=== PATIENT | female | born 1980 | race Caucasian/White ===

== ENCOUNTER 2018-06-13 01:26 | Outpatient (RCR) | payer BC ==
[~2018-06-13 01:26] MED LIST: ACET500T68 PO; BISM262T85 PO; CETI10CA8 PO; CIPR-344 PO; ETHI1TAB3 PO; IBUP800T37 PO; LOR5/325 PO; METR-1 PO; OXYC-865 PO
--- NOTE | 2018-06-13 15:36 | RADIOLOGY IMAGING REPORT ---
FACILITY: [facility] PATIENT NAME: Codi Ambrosio : 1980 MR: [id number] V: [id number] EXAM DATE: ORDERING PHYSICIAN: IRA MCNEAL TECHNOLOG[place] [facility] [place]odi Amb[place] : 1980 Visit/Account:[id number] Date of Sevice: 06/13/2018 EXAMINATION: MRI Lumbar spine without intravenous contrast HISTORY: Low back pain. COMPARISON: None available. TECHNIQUE: Multi-planar, multi-sequence lumbar spine MRI was performed without intravenous contrast administration. FINDINGS: Alignment: Normal. Vertebral marrow signal: Negative. Distal thoracic cord: Negative. Conus: negative, terminates at L1-L2 Cauda equina: Negative. Paravertebral soft tissues: Negative. Visualized abdominal and pelvic structures: Negative. Disc Spaces: Lower thoracic spine: Negative. L1-2: Negative. L2-3: Negative. L3-4: Negative. L4-5: Minimal disc bulge and facet hypertrophy. No significant stenosis. L5-S1: Mild facet hypertrophy with no significant stenosis. IMPRESSION: Minimal degenerative changes in the lower lumbar spine with no significant stenosis. Report Dictated By: Brigido Salas MD at 06/13/2018 3:27 PM Report E-Signed By: Brigido Salas MD at 06/13/2018 3:32 PM [id number]
--- NOTE | 2018-06-14 15:57 | RADIOLOGY IMAGING REPORT ---
FACILITY: [facility] PATIENT NAME: Codi Ambrosio : 1980 MR: [id number] V: [id number] EXAM DATE: ORDERING PHYSICIAN: IRA MCNEAL TECHNOLOGIST: Location: [facility] [place] Patient: Codi Ambrosio : 1980 Visit/Account:[id number] Date of Sevice: 06/14/2018 T SPINE W/O CONTRAST INDICATION: Back pain COMPARISON: None TECHNIQUE: Multiplane noncontrast MR imaging performed through the thoracic spine. FINDINGS: Chronic minimal T2, T3, T4, T5, T6, T7, T8, T9 and T11 wedge compression deformities. Cord signal is normal. 5 mm posterior T8 vertebral body high T2 signal is isointense on T1 acquisiti on and is favored to represent benign vascular signal or a benign atypical hemangioma. No canal narrowing. Minimal disc bulge at T8-9. Normal foramen. The visible extraspinal structures are normal. IMPRESSION: 1. Multiple chronic minimal thoracic wedge compression deformities, see comments above. 2. No canal narrowing or significant disc protrusion. 3. No cord signal abnormality or acute finding. Report Dictated By: Elie Bolivar MD at 06/14/2018 3:47 PM Report E-Signed By: Elie Bolivar MD at 06/14/2018 3:52 PM WSN:[id number]
== END 2018-06-14 18:00 | disposition home or self-care (01) ==
LOC: MRI 01:26 → EDSTATUS 14:49 → MRI 06-14 18:00
PROVIDERS: ATTEND Obstetrics & Gynecology
DX: M54.9 Dorsalgia, unspecified (principal)
CPT/HCPCS: 72146; 72148